=== PATIENT | female | born 1950 | race Caucasian/White ===

== ENCOUNTER 2018-12-30 07:18 | Outpatient (CLI) | payer MEDICARE ==
--- NOTE | 2018-12-30 07:57 | ULT ---
TRANSABDOMINAL TRANSVAGINAL PELVIC ULTRASOUND DATE:: 12/30/2018 12:00 AM CLINICAL HISTORY: Postmenopausal bleeding. COMPARISON: None. TECHNIQUE: Grayscale, color Doppler and spectral Doppler images were obtained of the pelvis see a tra nsabdominal transvaginal approach Uterus: Size: 6.8 x 4.7 x 3.8 cm Mass: None Cervix: Within normal limits Endometrium: Abnormal Endometrial Thickness: 15 mm Ovaries: Ovaries were not identified. Cul-de-sac: No free fluid IMPRESSION: Abnormal endometrial thickness for a postmenopausal female. Differential considerations include endom etrial hyperplasia, polyposis or carcinoma. Recommend consideration for endometrial sampling. Nonvisualization of the ovaries.
== END 2018-12-30 07:19 | disposition home or self-care (01) ==
LOC: BICULT 07:18
PROVIDERS: ATTEND Nurse Practitioner Family
DX: N95.0 Postmenopausal bleeding (principal); R93.89 Abnormal findings on diagnostic imaging of other specified body structures
CPT/HCPCS: 76856